=== PATIENT | female | born 1985 | race Caucasian/White ===

== ENCOUNTER 2016-06-21 14:42 | Emergency (ER) | payer MEDICAID ==
[2014-12-11 10:27] VITALS: BMI 36.0
[~2016-06-21 14:42] MED LIST: ABILIFY2 MG; CLIMARA 0.0.1 MG/PAT TRANSDERM; DEMEROL50 MG PO; GLUCOPHAGE500 MG PO; HYDROCHLOROTH12.5 M1 PO; HYDROCODON-ACE1 EAC7 PO; IBUPROFEN600 MG PO; KLONOPIN1 MG PO; LAMICTAL25 MG PO; LEVOXYL25 MCG PO; NEURONTIN600 MG PO; NORCO 10/325 TA1 TA1; OXYBUTYNIN CHLOR5 MG PO; SINGULAIR10 MG PO; SPIRIVA18 MCG INH; SYMBICORT 16010.2 GM INH; TOPAMAX50 MG PO; VENTOLIN HFA18 GM INH; ZANAFLEX4 MG; ZYPREXA20 MG PO
== END 2016-06-21 18:35 | disposition home or self-care (01) ==
LOC: D.ER 14:42
DX: S00.93XA Contusion of unspecified part of head, initial encounter (principal); W19.XXXA Unspecified fall, initial encounter; Y93.89 Activity, other specified; Y92.019 Unspecified place in single-family (private) house as the place of occurrence of the external cause; S43.402A Unspecified sprain of left shoulder joint, initial encounter; S16.1XXA Strain of muscle, fascia and tendon at neck level, initial encounter; F31.9 Bipolar disorder, unspecified; J44.9 Chronic obstructive pulmonary disease, unspecified; E11.9 Type 2 diabetes mellitus without complications; F20.9 Schizophrenia, unspecified

== ENCOUNTER 2016-07-07 11:23 | Emergency (ER) | payer MEDICAID ==
[2014-12-11 10:27] VITALS: BMI 36.0
[2016-07-07 13:04] LABS: APPEARANCE HAZY (CLEAR); BILIRUBIN NEGATIVE (NEGATIVE); COLOR YELLOW (YELLOW); GLUCOSE NEGATIVE (NEGATIVE); KETONE NEGATIVE (NEGATIVE); LEUKOCYTE ESTERASE NEGATIVE (NEGATIVE); NITRITE NEGATIVE (NEGATIVE); PROTEIN NEGATIVE (NEGATIVE); UROBILINOGEN NORMAL (NORMAL)
== END 2016-07-07 14:04 | disposition home or self-care (01) ==
LOC: D.ER 11:23
PROVIDERS: Emergency Medicine
DX: N39.0 Urinary tract infection, site not specified (principal); F20.9 Schizophrenia, unspecified; F31.9 Bipolar disorder, unspecified

== ENCOUNTER 2016-07-09 14:52 | Emergency (ER) | payer MEDICAID ==
[2014-12-11 10:27] VITALS: BMI 36.0
[2016-07-09 17:06] LABS: APPEARANCE HAZY (CLEAR); COLOR STRAW (YELLOW)
[2016-07-09 17:07] LABS: BILIRUBIN NEGATIVE (NEGATIVE); GLUCOSE NEGATIVE (NEGATIVE); KETONE NEGATIVE (NEGATIVE); LEUKOCYTE ESTERASE NEGATIVE (NEGATIVE); NITRITE NEGATIVE (NEGATIVE); PROTEIN NEGATIVE (NEGATIVE); UROBILINOGEN NORMAL (NORMAL)
[2016-07-09 18:11] LABS: BASOPHILS 0.2 % (0.0-2.0); EOSINOPHILS 2.3 % (0-7); HEMATOCRIT 45.7 % (36.0-48.0); HEMOGLOBIN 15.3 g/dL (12-16); MCH 30.8 pg (26.0-34.0); MCHC 33.5 g/dL (31.0-37.0); MEAN PLATELET VOLUME 10.3 fL (7.4-10.4); MONOCYTES 8.1 % (2-11); NEUTROPHILS 58.4 % (40-80); PLATELET COUNT 311 10x3/uL (130-400); RBC 4.97 10x6/uL (4.00-5.40); RDW 13.2 % (11.5-14.5); WBC 12.1 10x3/uL (4.8-10.8)
[2016-07-09 18:42] LABS: ALKALINE PHOSPHATASE 94 U/L (46-116); ALT (SGPT) 39 U/L (10-68); BILIRUBIN - TOTAL 0.24 mg/dL (0.2-1.3); CALC OSMOLALITY 271 mosm/kg (275-300); CALCIUM 10.2 mg/dL (8.5-10.1); CARBON DIOXIDE 23.9 mmol/L (21.0-32.0); CHLORIDE - SERUM 100 mmol/L (98-107); CREATININE - SERUM 0.8 mg/dL (0.6-1.3); GLUCOSE 89 mg/dL (74-106); POTASSIUM - SERUM 3.8 mmol/L (3.5-5.1); PROTEIN - SERUM 8.1 g/dL (6.4-8.2); SODIUM 136 mmol/L (136-145); UREA NITROGEN 15 mg/dL (7-18); eGFR NON AFRICAN AMERICAN 87 mL/min (90-120)
== END 2016-07-09 20:01 | disposition home or self-care (01) ==
LOC: D.ER 14:52
PROVIDERS: Emergency Medicine; Nurse Practitioner Family
DX: M54.5 Low back pain (principal); R10.9 Unspecified abdominal pain; F17.200 Nicotine dependence, unspecified, uncomplicated

== ENCOUNTER → 2016-07-15 15:21 | Outpatient (CLI) | payer MEDICAID ==
[2014-12-11 10:27] VITALS: BMI 36.0
== END | disposition home or self-care (01) ==
LOC: D.MRI 08:00
DX: R93.5 Abnormal findings on diagnostic imaging of other abdominal regions, including retroperitoneum (principal)

== ENCOUNTER 2016-12-12 12:04 | Emergency (ER) | payer MEDICAID ==
[2014-12-11 10:27] VITALS: BMI 36.0
[2016-12-12 14:23] LABS: CALC OSMOLALITY 277 mosm/kg (275-300); CALCIUM 9.5 mg/dL (8.5-10.1); CARBON DIOXIDE 28.4 mmol/L (21.0-32.0); CHLORIDE - SERUM 103 mmol/L (98-107); CREATININE - SERUM 0.7 mg/dL (0.6-1.3); GLUCOSE 126 mg/dL (74-106); POTASSIUM - SERUM 3.9 mmol/L (3.5-5.1); SODIUM 138 mmol/L (136-145); UREA NITROGEN 12 mg/dL (7-18); eGFR NON AFRICAN AMERICAN > 90 mL/min (90-120)
== END 2016-12-12 14:45 | disposition home or self-care (01) ==
LOC: D.ER 12:04
PROVIDERS: Family Medicine
DX: M79.605 Pain in left leg (principal); M79.604 Pain in right leg

== ENCOUNTER 2016-12-19 17:38 | Emergency (ER) | payer MEDICAID ==
[2014-12-11 10:27] VITALS: BMI 36.0
== END 2016-12-19 20:42 | disposition home or self-care (01) ==
LOC: D.ER 17:38
DX: M54.5 Low back pain (principal); M62.830 Muscle spasm of back; Z72.0 Tobacco use

== ENCOUNTER 2016-12-31 14:58 | Emergency (ER) | payer MEDICAID ==
[2014-12-11 10:27] VITALS: BMI 36.0
== END 2016-12-31 18:30 | disposition home or self-care (01) ==
LOC: D.ER 14:58
DX: M62.838 Other muscle spasm (principal); M79.1 Myalgia; F17.200 Nicotine dependence, unspecified, uncomplicated; J44.9 Chronic obstructive pulmonary disease, unspecified

== ENCOUNTER 2017-01-30 14:23 | Emergency (ER) | payer MEDICAID ==
[2014-12-11 10:27] VITALS: BMI 36.0
== END 2017-01-30 16:03 | disposition home or self-care (01) ==
LOC: D.ER 14:23
DX: I80.8 Phlebitis and thrombophlebitis of other sites (principal); F15.10 Other stimulant abuse, uncomplicated; J44.9 Chronic obstructive pulmonary disease, unspecified

== ENCOUNTER 2017-02-02 15:27 | Emergency (ER) | payer MEDICAID ==
[2014-12-11 10:27] VITALS: BMI 36.0
== END 2017-02-02 18:30 | disposition left against medical advice (07) ==
LOC: D.ER 15:27
DX: Z76.0 Encounter for issue of repeat prescription (principal)

== ENCOUNTER 2017-04-07 11:31 | Emergency (ER) | payer MEDICAID ==
[2014-12-11 10:27] VITALS: BMI 36.0
[2017-04-07 12:33] LABS: BASOPHILS 0.2 % (0-2); EOSINOPHILS 1.1 % (0-7); HEMATOCRIT 45.8 % (36.0-48.0); HEMOGLOBIN 15.5 g/dL (12-16); IMMATURE GRANULOCYTES 0.4 % (0-5); LYMPHOCYTES 25.8 % (15-50); MCH 30.6 pg (26.0-34.0); MCHC 33.8 g/dL (31.0-37.0); MCV 90.5 fL (80.0-100.0); MEAN PLATELET VOLUME 9.7 fL (7.4-10.4); NEUTROPHILS 66.5 % (40-80); PLATELET COUNT 309 10x3/uL (130-400); RBC 5.06 10x6/uL (4.00-5.40); RDW 13.2 % (11.5-14.5); WBC 13.2 10x3/uL (4.8-10.8)
[2017-04-07 12:36] LABS: APPEARANCE HAZY (CLEAR); BILIRUBIN NEGATIVE (NEGATIVE); COLOR YELLOW (YELLOW); GLUCOSE NEGATIVE (NEGATIVE); KETONE NEGATIVE (NEGATIVE); NITRITE NEGATIVE (NEGATIVE); PROTEIN NEGATIVE (NEGATIVE); SPECIFIC GRAVITY 1.015 (1.005-1.020); UROBILINOGEN NORMAL (NORMAL)
[2017-04-07 12:39] LABS: HCG URINE NEGATIVE (NEGATIVE)
[2017-04-07 12:55] LABS: ALBUMIN 4.1 g/dL (3.4-5.0); ALKALINE PHOSPHATASE 109 U/L (46-116); ALT (SGPT) 43 U/L (10-68); BILIRUBIN - TOTAL 0.32 mg/dL (0.2-1.3); CALC OSMOLALITY 281 mosm/kg (275-300); CALCIUM 9.6 mg/dL (8.5-10.1); CARBON DIOXIDE 27.1 mmol/L (21.0-32.0); CHLORIDE - SERUM 104 mmol/L (98-107); CREATININE - SERUM 0.7 mg/dL (0.6-1.3); GLUCOSE 95 mg/dL (74-106); LIPASE 124 U/L (73-393); POTASSIUM - SERUM 4.5 mmol/L (3.5-5.1); PROTEIN - SERUM 8.6 g/dL (6.4-8.2); SODIUM 141 mmol/L (136-145); UREA NITROGEN 14 mg/dL (7-18); eGFR NON AFRICAN AMERICAN > 90 mL/min (90-120)
== END 2017-04-07 15:54 | disposition home or self-care (01) ==
LOC: D.ER 11:31
PROVIDERS: Emergency Medicine
DX: R10.9 Unspecified abdominal pain (principal); R11.10 Vomiting, unspecified

== ENCOUNTER 2017-05-06 16:09 | Emergency (ER) | payer MEDICAID ==
[2014-12-11 10:27] VITALS: BMI 36.0
== END 2017-05-06 18:11 | disposition home or self-care (01) ==
LOC: D.ER 16:09
DX: R51 Headache (principal); J44.9 Chronic obstructive pulmonary disease, unspecified

== ENCOUNTER 2017-05-08 16:01 | Observation (INO) | payer MEDICAID ==
[~2017-05-08] VITALS: Ht 149.9 cm; Wt 82.6 kg
[2017-05-08 16:43] LABS: APPEARANCE CLEAR (CLEAR); BILIRUBIN NEGATIVE (NEGATIVE); COLOR STRAW (YELLOW); GLUCOSE NEGATIVE (NEGATIVE); KETONE NEGATIVE (NEGATIVE); NITRITE NEGATIVE (NEGATIVE); PROTEIN NEGATIVE (NEGATIVE); UROBILINOGEN NORMAL (NORMAL)
[2017-05-08 16:45] LABS: BACTERIA FEW /hpf (NONE SEEN); EPITHELIAL CELLS 0-5 /hpf (0-5); WHITE CELLS - URINE OCC /hpf (0-5)
[2017-05-08 16:46] LABS: UDS - AMPHET NEGATIVE QUAL (NEGATIVE); UDS - BARB POSITIVE QUAL (NEGATIVE); UDS - BENZO NEGATIVE QUAL (NEGATIVE); UDS - COCAINE NEGATIVE QUAL (NEGATIVE); UDS - OPIATE NEGATIVE QUAL (NEGATIVE); UDS - PCP NEGATIVE QUAL (NEGATIVE); UDS - THC POSITIVE QUAL (NEGATIVE)
[2017-05-08 16:52] LABS: BASOPHILS 0.3 % (0-2); EOSINOPHILS 1.2 % (0-7); HEMATOCRIT 39.8 % (36.0-48.0); HEMOGLOBIN 12.6 g/dL (12-16); IMMATURE GRANULOCYTES 0.2 % (0-5); LYMPHOCYTES 34.8 % (15-50); MCH 30.4 pg (26.0-34.0); MCHC 31.7 g/dL (31.0-37.0); MCV 96.1 fL (80.0-100.0); MEAN PLATELET VOLUME 10.2 fL (7.4-10.4); MONOCYTES 7.5 % (2-11); PLATELET COUNT 256 10x3/uL (130-400); RBC 4.14 10x6/uL (4.00-5.40); RDW 13.1 % (11.5-14.5); WBC 10.1 10x3/uL (4.8-10.8)
[2017-05-08 17:03] LABS: ACETAMINOPHEN 4.5 ug/mL (10.0-30.0); ALBUMIN 3.5 g/dL (3.4-5.0); ALKALINE PHOSPHATASE 94 U/L (46-116); ALT (SGPT) 34 U/L (10-68); BILIRUBIN - TOTAL 0.23 mg/dL (0.2-1.3); CALC OSMOLALITY 280 mosm/kg (275-300); CALCIUM 8.6 mg/dL (8.5-10.1); CARBON DIOXIDE 24.4 mmol/L (21.0-32.0); CHLORIDE - SERUM 107 mmol/L (98-107); CREATININE - SERUM 0.9 mg/dL (0.6-1.3); GLUCOSE 98 mg/dL (74-106); POTASSIUM - SERUM 3.7 mmol/L (3.5-5.1); PROTEIN - SERUM 7.1 g/dL (6.4-8.2); SODIUM 141 mmol/L (136-145); UREA NITROGEN 12 mg/dL (7-18); eGFR NON AFRICAN AMERICAN 76 mL/min (90-120)
[2017-05-08 17:08] LABS: HCG SERUM NEGATIVE (NEGATIVE)
--- NOTE | 2017-05-08 22:30 | NUR ---
ARRIVED TO UNIT VIA STRETCHER WITH ER STAFF. PT TRANSFERED TO BED AND WAS RECIEVED WITH BM AND URINE ALL OVER HER AND HER BED. PT STATED THAT THE ER STAFF WOULD NOT LET HER GO TO THE RR. PT IS SLIGHTLY LETHARGIC, SPEECH SLURRED, BUT ORIENTED X4. CONTINUES TO YELL OUT CURSE WORDS WHILE TALKING ABOUT STAFF AND HER FAMILY MEMBERS. STATES "IM TIRED OF HURTING, I WANT IT ALL TO BE OVER", "WHEN I GET OUT OF HERE THEY ARE ALL GOING TO PAY", "I JUST WANT TO ". PT ON OBSERVATION FOR SUICIDE ATTEMPT. PERSONAL ITEMS ARRIVED IN A ITEMS BAG, PT ALSO HAS ON A WHITE GOLD RING AND NOSE RING. PLACED PT STICKERS ON PERSONAL ITEMS BAG AND SEALED WITH PT STICKERS, THIS WAS SHOWN TO THE PATIENT AND SHE WAS TOLD HER THINGS WOULD BE HELD AT OUR NURSES STATION FROM DESK. ADMISSIONS ASSESSMENT COMPLETED ATT. PLEASE SEE FLOW SHEETS FOR FULL DETAILS. PT PRESENTS WITH MULTIPLE SCABS ON LEFT FACE WITH REDENNED AREAS AND BRUISING. BRUISING ALSO NOTED DOWN ARMS BILATERALLY. HANDS AND FEET DURTY, GAVE WASH CLOTH AND SHE WIPES SOME OFF. PROVIDED BEDSIDE CAMODE AND PT USING THIS WITH LITTLE ASSISTANCE, DIARRHEA NOTED. NO PROBLEMS RELIEVING HERSELF. RR EVEN AND UNLABORED WITH WHEEZES IN UPPER LOBES AND DIMINISHED IN LOWER LOBES. S1S2 HEARD AND PPP, CAP REFIL <3 SECONDS. PUPILS 5MM AND BRISK. BS ACTIVE X4. MOVES ALL EXTREMEMTIES ON OWN. C/O PAIN "ALL OVER" INFORMED HER THAT SHE WOULD NOT BE ABLE TO GET ANY PAIN MEDS SHE WAS BEING MONITORED FOR HER LOC AND THIS CANNOT BE MONITORED WITH PAIN MEDS ON BOARD. PT C/O BEING IGNORED BY OTHER HOSPITAL STAFF AND IS COLD AND HURTING. OFFERED WARM BLANKETS AND THESE WERE ACCEPTED.
[2017-05-08] MEDS ORDERED: ESTRACE2 MG PO (22:31)
[2017-05-08 22:38] VITALS: BP 122/68; BMI 36.8
[2017-05-08 23:00] VITALS: BP 107/79
--- NOTE | 2017-05-08 23:30 | NUR ---
CHECKED IN ON PATIENT AND SHE WAS ON CAMMODE, C/O BEING IGNORED AND STARTED YELLING ABOUT TEARING OFF HER LINES AND LEAVING, CHARGE NURSE IN ROOM TO SPEAK WITH PT.
[2017-05-09] VITALS (24 sets, daily range): BP systolic 99–136; BP diastolic 46–94
--- NOTE | 2017-05-09 01:00 | NUR ---
SLEEPING, NO S&S ACUTE DISTRESS NOTED. BED LOW AND LOCKED, CALL LIGHT IN REACH. WILL CPOC.
--- NOTE | 2017-05-09 02:58 | NUR ---
REASSESSMENT COMPLETE, PLEASE SEE FLOW SHEETS FOR DETAILS. DENIES ANY NEEDS ATT. WAS WOKEN UP FROM SPEECH. VSS, BED LOW AND LOCKED, CALL LIGHT IN REACH. NO CHANGES FROM PREVIOUS ASSESSMENT. WILL CPOC.
[2017-05-09 04:45] LABS: BASOPHILS 0.1 % (0-2); EOSINOPHILS 1.3 % (0-7); HEMATOCRIT 37.8 % (36.0-48.0); HEMOGLOBIN 12.3 g/dL (12-16); IMMATURE GRANULOCYTES 0.4 % (0-5); LYMPHOCYTES 40.3 % (15-50); MCH 30.6 pg (26.0-34.0); MCHC 32.5 g/dL (31.0-37.0); MEAN PLATELET VOLUME 11.7 fL (7.4-10.4); MONOCYTES 6.8 % (2-11); NEUTROPHILS 51.1 % (40-80); RBC 4.02 10x6/uL (4.00-5.40); RDW 13.1 % (11.5-14.5); WBC 9.6 10x3/uL (4.8-10.8)
[2017-05-09 04:46] LABS: PLATELET COUNT 141 10x3/uL (130-400)
--- NOTE | 2017-05-09 05:00 | NUR ---
RESTING, VSS, WILL CPOC.
[2017-05-09 05:07] LABS: CALC OSMOLALITY 281 mosm/kg (275-300); CALCIUM 8.4 mg/dL (8.5-10.1); CARBON DIOXIDE 26.3 mmol/L (21.0-32.0); CHLORIDE - SERUM 110 mmol/L (98-107); CREATININE - SERUM 0.7 mg/dL (0.6-1.3); GLUCOSE 96 mg/dL (74-106); POTASSIUM - SERUM 4.1 mmol/L (3.5-5.1); SODIUM 142 mmol/L (136-145); UREA NITROGEN 9 mg/dL (7-18); eGFR NON AFRICAN AMERICAN > 90 mL/min (90-120)
--- NOTE | 2017-05-09 11:08 | NUR ---
CONTINENT BOWEL MOVEMENT VIA BEDSIDE TOILET. LIQUID BROWN. NO ACUTE DISTRESS NOTED. LYING IN BED AT THIS TIME. WILL CONTINUE PLAN OF CARE.
--- NOTE | 2017-05-09 13:27 | NUR ---
LYING IN BED RESTING AT THIS TIME. NO ACUTE DISTRESS NOTED. RESPIRATIONS STEADY AND UNLABORED. AWAKENS EASILY WHEN SPOKEN TO. WILL CONTINUE PLAN OF CARE.
--- NOTE | 2017-05-09 16:28 | NUR ---
UP IN BED AWAKE AT THIS TIME. ALSO NOTED AT THIS TIME CONTINENT BOWEL MOVEMENT, LIQUID BROWN, VIA BEDSIDE TOILET ALONG WITH CONTINENT VOID. NO ACUTE DISTRESS NOTED. WILL CONTINUE PLAN OF CARE.
--- NOTE | 2017-05-09 18:03 | NUR ---
UP IN BED AWAKE AT THIS TIME. DENIES ANY NEEDS. NO ACUTE DISTRESS NOTED. WILL CONTINUE PLAN OF CARE.
--- NOTE | 2017-05-09 19:30 | NUR ---
REPORT RECEIVED. SHIFT ASSESSMENT COMPLETED PER FLOW SHEET. PT LAYING IN BED, AWAKE AND ALERT. ORIENTED X4. SPEECH CLEAR. S1S2 PRESENT. TELEMETRY MONITORING HR 89. RADIAL AND PEDAL PULSES PALP. BREATHING EQUAL, NON-LABORED. CLEAR BREATH SOUNDS ALL LOBES. BS ACTIVE X4. REDNESS, ABRASIONS, BRUISES, SCABS NOTED TO LEFT SIDE OF FACE, PT STATES IT WAS DUE TO A RECENT FALL. LT FOREARM PIV, SALINE LOCKED. CALL LIGHT WITHIN REACH. BED IN LOWEST POSITION. SEE FLOW SHEET FOR COMPLETE ASSESSMENT. VSS. WILL CONTINUE TO MONITOR.
--- NOTE | 2017-05-09 21:00 | NUR ---
PT LAYING IN BED RESTING, WATER PROVIDED. CALL LIGHT WITHIN REACH.
--- NOTE | 2017-05-09 23:05 | NUR ---
REASSESSMENT COMPLETED, SEE FLOW SHEET FOR DETAILS. NO ACUTE CHANGES NOTED. VSS. DENIES NEEDS. CALL LIGHT WITHIN REACH. BED IN LOWEST POSITION. WILL CONTINUE TO MONITOR.
[2017-05-10] VITALS (16 sets, daily range): BP systolic 110–139; BP diastolic 51–99; Ht 149.9 cm; Wt 82.6 kg
--- NOTE | 2017-05-10 01:00 | NUR ---
PT LAYING IN BED RESTING, EYES CLOSED. VSS. WILL CONTINUE TO MONITOR.
--- NOTE | 2017-05-10 03:38 | NUR ---
REASSESSMENT COMPLETED PER FLOW SHEET, NO ACUTE CHANGES NOTED. PT ALERT AND ORIENTED. WATER WITH ICE PROVIDED PER REQUEST. DENIES FURTHER NEEDS. NO DISTRESS NOTED AT THIS TIME. WILL CONTINUE TO MONITOR.
[2017-05-10 04:36] LABS: BASOPHILS 0.2 % (0-2); EOSINOPHILS 2.6 % (0-7); HEMATOCRIT 38.8 % (36.0-48.0); HEMOGLOBIN 12.6 g/dL (12-16); IMMATURE GRANULOCYTES 0.2 % (0-5); LYMPHOCYTES 46.4 % (15-50); MCH 30.3 pg (26.0-34.0); MCHC 32.5 g/dL (31.0-37.0); MCV 93.3 fL (80.0-100.0); MEAN PLATELET VOLUME 10.1 fL (7.4-10.4); MONOCYTES 6.9 % (2-11); NEUTROPHILS 43.7 % (40-80); PLATELET COUNT 235 10x3/uL (130-400); RBC 4.16 10x6/uL (4.00-5.40); RDW 12.9 % (11.5-14.5); WBC 8.8 10x3/uL (4.8-10.8)
[2017-05-10 05:02] LABS: ALBUMIN 3.1 g/dL (3.4-5.0); ALKALINE PHOSPHATASE 101 U/L (46-116); ALT (SGPT) 27 U/L (10-68); CALC OSMOLALITY 280 mosm/kg (275-300); CALCIUM 8.4 mg/dL (8.5-10.1); CARBON DIOXIDE 23.7 mmol/L (21.0-32.0); CHLORIDE - SERUM 106 mmol/L (98-107); CREATININE - SERUM 0.7 mg/dL (0.6-1.3); GLUCOSE 102 mg/dL (74-106); POTASSIUM - SERUM 3.6 mmol/L (3.5-5.1); PROTEIN - SERUM 6.5 g/dL (6.4-8.2); SODIUM 141 mmol/L (136-145); eGFR NON AFRICAN AMERICAN > 90 mL/min (90-120)
--- NOTE | 2017-05-10 05:07 | NUR ---
LAYING IN BED RESTING, EYES CLOSED. DENIES NEEDS. ZAIRA LIGHT WITHIN REACH. BED IN LOWEST POSITION. WILL CONTINUE TO MONITOR.
[2017-05-10 05:08] LABS: UREA NITROGEN 13 mg/dL (7-18)
--- NOTE | 2017-05-10 05:59 | NUR ---
MED ADMINISTERED PER EMAR, SEE FOR DETAILS. WATER PROVIDED. DENIES FURTHER NEEDS. WILL CONTINUE TO MONITOR. CALL LIGHT WITHIN REACH. BED IN LOWEST POSITION.
--- NOTE | 2017-05-10 08:16 | NUR ---
pt had woman calling hospitals looking for her, saying she was her mother and had the patient's child. Pt told about phone call. Says her mother's name is Monica and that she does have her daughter. It is okay to give her information.
--- NOTE | 2017-05-10 08:27 | NUR ---
spoke with patient mother. updated her to patient situation. let her know we were working on getting inpatient care for her.
--- NOTE | 2017-05-10 09:07 | NUR ---
MORNING MEDICATIONS PROVIDED. PT HAS EATEN BREAKFAST. ASKS FOR MORE COFFEE. SHE PROVIDED ME WITH A LIST OF PROVIDERS SHE HAS SEEN IN THE PAST REQUESTED BY DR THRASHER. LIST CONSISTED OF ISA REYES RHONDA THANNILL, [place].
--- NOTE | 2017-05-10 10:17 | NUR ---
SPOKE TO DR JOHNSON ABOUT RESTARTING PATIENT LEVOTHYROXIN AND ESTROGEN. AGREES TO RESTART
--- NOTE | 2017-05-10 10:24 | NUR ---
* Is the patient Alert and Oriented? Yes 0 * How many steps to enter\exit or inside your home? 5 0 * PCP Karolina Dougherty @ [facility] 0 * Pharmacy [facility] on [address] 0 * Preadmission Environment Home with Family 0 * ADLs Independent 0 * List name and contact numbers for known caregivers / representatives who currently or will assist patient after discharge: Mother - Monica Matthews [phone] 0 * Additional services required to return to the preadmission environment? Yes 0 * Has this patient been hospitalized within the prior 30 days at any hospital? No Patient Name: MASOOD LOZADA Admission Status: ER Accout number: [id number] Admission Date: 05-08-2017 : 1985 Admission Diagnosis: Attending: MELANIE GILES Current LOS: 2 Anticipated DC Date: 05-10-2017 Planned Disposition: Psych facility Primary Insurance: [facility] PRIVATE OPTIONS JOANNA Discharge Planning Comments: CM met with patient to assess dc plans/needs. Patient states she lives with her boyfriend, her best friend and her boyfriend. She states she has a 5 year old autistic son who lives with her . Nursing reports patient has a daughter that lives with her mother. She reports she is independent with all ADL's. Discussed inpatient psych options. Patient prefers to go home. Explained recommendation of inpatient psych placement. She is tearful & requests to discuss options with physician. CM called [facility] and requested Dr. Ha come see patient today. Explained I would be working on placement in the mean time. CM will follow. Financial Recruiter: Dolores Avelar
--- NOTE | 2017-05-10 10:35 | NUR ---
LEVOTHYROXIN GIVEN, AWAITING ESTRADIOL FROM PHARMACY
--- NOTE | 2017-05-10 11:58 | NUR ---
PT C/O NAUSEA AND HEADACHE. NOTHING ON ORDER FOR NAUSEA.
--- NOTE | 2017-05-10 12:12 | NUR ---
SPOKE WITH DR JOHNSON. ORDER RECEIVED FOR ZOFRAN 4MG Q4H PRN PO.
--- NOTE | 2017-05-10 13:51 | CN ---
PATIENT NAME:MASOOD LOZADA MEDICAL RECORD: [id number] : 81 LOCATION:SARAHD.2306 ADMIT DATE: 05/08/17 ACCOUNT: [id number] CONSULTING PHYSICIAN: LASHELL THRASHER MD REFERRING PHYSICIAN: MELANIE MEDEIROS MD DATE OF CONSULTATION: 05/09/2017 PSYCHIATRIC CONSULTATION IDENTIFYING DATA: The patient is 32 years old and she is admitted to the hospital on a voluntary basis. CHIEF COMPLAINT: Overdose. HISTORY OF PRESENT ILLNESS: The patient took a deliberate overdose of gabapentin and Fioricet. She did this with the intention of killing herself and admitted it when she came here. She now says she does not want to , but she does not say it in a very convincing way. She has very limited insight about her situation. She reports lots of psychosocial stressors, mood lability, and feels overwhelmed. She is willing to go to an inpatient treatment. MENTAL STATUS EXAMINATION: The patient is awake; alert; and oriented to person, place, time, and situation. Her mood is anxious. Her affect is labile. Thought processes are disorganized. Her memory, concentration, and abstraction abilities are moderately impaired. She denies any active intent to harm herself or others as well as any overt psychotic symptoms. ASSESSMENT: 1. Bipolar disorder by history. 2. Status post overdose. PLAN: The patient should be confined. The patient should be transferred to an inpatient psychiatric facility when medically stable. She is willing to go on a voluntary basis. Her long-term prognosis is guarded and will depend upon the treatment that she receives in the psychiatric facility and her compliance with outpatient followup care. TRANSINT:[id number] Voice Confirmation ID: [id number] DOCUMENT ID: [id number] LASHELL THRASHER MD at 1351 CC: [id number] DICTATION DATE: 05/09/17 1250 SALT MAKER: 05/09/17 1326 ADM IN [facility] [address] [place] [address]
--- NOTE | 2017-05-10 13:58 | NUR ---
REPORT CALLED TO CHIKI PULIDO RN AT [facility]. [phone]. PT TO BE ACCEPTED BY DR CURT BORGES TO ROOM 400 BED 1.
--- NOTE | 2017-05-10 15:07 | NUR ---
Rec'd call from [facility] with [facility]. Patient has been accepted and can transfer to Room 400 Bed 1. Nursing to call report to [phone]. Dr. Fabian Levine accepting patient. Patient agreeable with POC.
--- NOTE | 2017-05-10 15:37 | NUR ---
1530 CASE MANANGEMENT IN TO INFORM PT OF TRANSFER TO [facility].. AMBULANCE CALLED FOR TRANSPORT PIV DCd .. PT C/O HEADACHE .. NO MEDS GIVEN AT THIS TIME FOR HEADACHE NONE DUE.. ICE PACK REINFORCED..
[2017-05-11 18:09] LABS: AFB SPECIMEN PROCESSING Concentration (())
[2017-06-29 09:13] LABS: ACID FAST CULTURE Negative (())
== END 2017-05-10 16:46 | disposition short-term general hospital (02) ==
LOC: D.ER 16:01 → D.ICU 21:25 → OBSVTIME 21:25 → D.ICU 21:25
PROVIDERS: Family Medicine; ADMIT Family Medicine Adult Medicine
DX: T42.6X2A Poisoning by other antiepileptic and sedative-hypnotic drugs, intentional self-harm, initial encounter (principal); T39.1X2A Poisoning by 4-Aminophenol derivatives, intentional self-harm, initial encounter; F31.9 Bipolar disorder, unspecified; E66.01 Morbid (severe) obesity due to excess calories; E11.9 Type 2 diabetes mellitus without complications; I10 Essential (primary) hypertension; G40.909 Epilepsy, unspecified, not intractable, without status epilepticus; J44.9 Chronic obstructive pulmonary disease, unspecified; Z72.0 Tobacco use

== ENCOUNTER 2017-06-28 18:13 | Emergency (ER) | payer MEDICAID ==
[2017-05-10 09:09] VITALS: BMI 36.7
[~2017-06-28 18:13] MED LIST changes: +ESTRACE2 MG PO
[2017-06-28 18:39] LABS: APPEARANCE CLEAR (CLEAR); BILIRUBIN NEGATIVE (NEGATIVE); COLOR YELLOW (YELLOW); GLUCOSE NEGATIVE (NEGATIVE); KETONE NEGATIVE (NEGATIVE); NITRITE NEGATIVE (NEGATIVE); PROTEIN NEGATIVE (NEGATIVE); UROBILINOGEN NORMAL (NORMAL)
[2017-06-28 18:45] LABS: BASOPHILS 0.1 % (0-2); EOSINOPHILS 0.8 % (0-7); HEMATOCRIT 40.4 % (36.0-48.0); HEMOGLOBIN 13.4 g/dL (12-16); IMMATURE GRANULOCYTES 0.8 % (0-5); LYMPHOCYTES 26.4 % (15-50); MCH 30.9 pg (26.0-34.0); MCHC 33.2 g/dL (31.0-37.0); MCV 93.1 fL (80.0-100.0); MEAN PLATELET VOLUME 9.1 fL (7.4-10.4); MONOCYTES 7.3 % (2-11); NEUTROPHILS 64.6 % (40-80); PLATELET COUNT 245 10x3/uL (130-400); RBC 4.34 10x6/uL (4.00-5.40); RDW 12.6 % (11.5-14.5); WBC 13.4 10x3/uL (4.8-10.8)
[2017-06-28 19:00] LABS: ALBUMIN 3.5 g/dL (3.4-5.0); ALKALINE PHOSPHATASE 124 U/L (46-116); ALT (SGPT) 35 U/L (10-68); BILIRUBIN - TOTAL 0.14 mg/dL (0.2-1.3); CALC OSMOLALITY 275 mosm/kg (275-300); CALCIUM 9.2 mg/dL (8.5-10.1); CHLORIDE - SERUM 101 mmol/L (98-107); CREATININE - SERUM 0.7 mg/dL (0.6-1.3); GLUCOSE 113 mg/dL (74-106); POTASSIUM - SERUM 3.8 mmol/L (3.5-5.1); PROTEIN - SERUM 7.6 g/dL (6.4-8.2); SODIUM 138 mmol/L (136-145); UREA NITROGEN 9 mg/dL (7-18); eGFR NON AFRICAN AMERICAN > 90 mL/min (90-120)
[2017-06-28 19:04] LABS: CREATINE KINASE 114 UL (21-215)
[2017-06-28 19:06] LABS: TROPONIN-I < 0.017 ng/mL (0.000-0.060)
[2017-06-28 19:28] LABS: CKMB 1.3 U/L (0.0-3.6)
== END 2017-06-28 21:13 | disposition home or self-care (01) ==
LOC: D.ER 18:13
PROVIDERS: Family Medicine
DX: J44.1 Chronic obstructive pulmonary disease with (acute) exacerbation (principal); J20.9 Acute bronchitis, unspecified; F17.200 Nicotine dependence, unspecified, uncomplicated

== ENCOUNTER 2017-06-30 19:24 | Emergency (ER) | payer MEDICAID ==
[2017-05-10 09:09] VITALS: BMI 36.7
[2017-06-30 19:58] LABS: BASOPHILS 0.1 % (0-2); HEMATOCRIT 39.2 % (36.0-48.0); HEMOGLOBIN 12.9 g/dL (12-16); LYMPHOCYTES 22.4 % (15-50); MCH 30.8 pg (26.0-34.0); MCHC 32.9 g/dL (31.0-37.0); MCV 93.6 fL (80.0-100.0); MEAN PLATELET VOLUME 9.3 fL (7.4-10.4); NEUTROPHILS 62.5 % (40-80); PLATELET COUNT 212 10x3/uL (130-400); RBC 4.19 10x6/uL (4.00-5.40); RDW 12.9 % (11.5-14.5); WBC 7.7 10x3/uL (4.8-10.8)
[2017-06-30 20:20] LABS: INR 0.95 (0.85-1.17); PROTIME 12.3 SECONDS (11.6-15.0)
[2017-06-30 20:22] LABS: D-DIMER-QUANTITATIVE 0.3 ug/mLFEU (0.20-0.54)
[2017-06-30 20:24] LABS: ALBUMIN 3.4 g/dL (3.4-5.0); ALKALINE PHOSPHATASE 131 U/L (46-116); ALT (SGPT) 47 U/L (10-68); BILIRUBIN - TOTAL 0.12 mg/dL (0.2-1.3); CALC OSMOLALITY 276 mosm/kg (275-300); CALCIUM 8.6 mg/dL (8.5-10.1); CARBON DIOXIDE 25.1 mmol/L (21.0-32.0); CHLORIDE - SERUM 102 mmol/L (98-107); CREATININE - SERUM 0.8 mg/dL (0.6-1.3); POTASSIUM - SERUM 3.8 mmol/L (3.5-5.1); PROTEIN - SERUM 7.3 g/dL (6.4-8.2); SODIUM 136 mmol/L (136-145); UREA NITROGEN 14 mg/dL (7-18); eGFR NON AFRICAN AMERICAN 87 mL/min (90-120)
[2017-06-30 20:25] LABS: GLUCOSE 172 mg/dL (74-106)
[2017-06-30 20:32] LABS: CREATINE KINASE 193 UL (21-215); MAGNESIUM - SERUM 1.9 mg/dL (1.8-2.4); PRO BNP 29 pg/mL (0-125)
[2017-06-30 20:34] LABS: TROPONIN-I < 0.017 ng/mL (0.000-0.060)
[2017-06-30 20:45] LABS: APPEARANCE CLEAR (CLEAR); BILIRUBIN NEGATIVE (NEGATIVE); COLOR YELLOW (YELLOW); GLUCOSE 100 mg/dL (NEGATIVE); KETONE NEGATIVE (NEGATIVE); NITRITE NEGATIVE (NEGATIVE); PROTEIN NEGATIVE (NEGATIVE); UROBILINOGEN NORMAL (NORMAL)
== END 2017-06-30 21:43 | disposition home or self-care (01) ==
LOC: D.ER 19:24
PROVIDERS: Family Medicine
DX: J20.9 Acute bronchitis, unspecified (principal); J45.901 Unspecified asthma with (acute) exacerbation; I10 Essential (primary) hypertension; E11.9 Type 2 diabetes mellitus without complications

== ENCOUNTER 2017-07-15 07:38 | Emergency (ER) | payer MEDICAID ==
[2017-05-10 09:09] VITALS: BMI 36.7
[2017-07-15 08:05] LABS: BASOPHILS 0.2 % (0-2); EOSINOPHILS 1.2 % (0-7); HEMATOCRIT 39.7 % (36.0-48.0); HEMOGLOBIN 13.3 g/dL (12-16); IMMATURE GRANULOCYTES 1.4 % (0-5); LYMPHOCYTES 37.3 % (15-50); MCH 30.2 pg (26.0-34.0); MCHC 33.5 g/dL (31.0-37.0); MCV 90.2 fL (80.0-100.0); MEAN PLATELET VOLUME 9.2 fL (7.4-10.4); MONOCYTES 8.7 % (2-11); NEUTROPHILS 51.2 % (40-80); RDW 12.4 % (11.5-14.5); WBC 11.1 10x3/uL (4.8-10.8)
[2017-07-15 08:06] LABS: PLATELET COUNT 264 10x3/uL (130-400)
[2017-07-15 08:21] LABS: ALBUMIN 3.7 g/dL (3.4-5.0); ALKALINE PHOSPHATASE 109 U/L (46-116); ALT (SGPT) 69 U/L (10-68); CALC OSMOLALITY 276 mosm/kg (275-300); CALCIUM 8.9 mg/dL (8.5-10.1); CARBON DIOXIDE 26.1 mmol/L (21.0-32.0); CHLORIDE - SERUM 99 mmol/L (98-107); CREATININE - SERUM 0.7 mg/dL (0.6-1.3); GLUCOSE 150 mg/dL (74-106); POTASSIUM - SERUM 3.7 mmol/L (3.5-5.1); PROTEIN - SERUM 7.3 g/dL (6.4-8.2); SODIUM 136 mmol/L (136-145); UREA NITROGEN 17 mg/dL (7-18); eGFR NON AFRICAN AMERICAN > 90 mL/min (90-120)
[2017-07-15 08:29] LABS: APPEARANCE CLEAR (CLEAR); BILIRUBIN NEGATIVE (NEGATIVE); COLOR YELLOW (YELLOW); GLUCOSE NEGATIVE (NEGATIVE); KETONE NEGATIVE (NEGATIVE); NITRITE NEGATIVE (NEGATIVE); PROTEIN NEGATIVE (NEGATIVE); UROBILINOGEN NORMAL (NORMAL)
[2017-07-15 08:30] LABS: HCG URINE NEGATIVE (NEGATIVE)
[2017-07-15 08:32] LABS: CKMB 0.9 U/L (0.0-3.6); CREATINE KINASE 91 UL (21-215); TROPONIN-I < 0.017 ng/mL (0.000-0.060)
[2017-07-15 08:33] LABS: PRO BNP 9 pg/mL (0-125)
== END 2017-07-15 10:16 | disposition home or self-care (01) ==
LOC: D.ER 07:38
PROVIDERS: Family Medicine
DX: J06.9 Acute upper respiratory infection, unspecified (principal); J20.9 Acute bronchitis, unspecified; J44.9 Chronic obstructive pulmonary disease, unspecified; E11.9 Type 2 diabetes mellitus without complications; I10 Essential (primary) hypertension

== ENCOUNTER → 2017-09-09 12:29 | Outpatient (CLI) | payer MEDICAID ==
[2017-05-10 09:09] VITALS: BMI 36.7
== END | disposition home or self-care (01) ==
LOC: D.US 12:29
DX: K81.1 Chronic cholecystitis (principal)

== ENCOUNTER 2018-11-27 20:44 | Observation (INO) | payer MEDICAID ==
[~2018-11-27] VITALS: Ht 149.9 cm; Wt 74.8 kg
[~2018-11-27 20:44] MED LIST changes: -LEVOXYL25 MCG PO; +LEVOXYL75 MCG
--- NOTE | 2018-11-27 20:44 | NUR ---
PT REPORT FROM EMS CREW, PT PLACED IN [facility] ROOM 1 FOR EVALUATION OF OVERDOSE. PT WAS ASISSTED [facility], AND GIVEN BLUE PAPER SCRUBS TO CHANGE INTO. CALL FOR SCREENER WAS PLACED AND PATIENT WAS PLACED ON 1:1 OBS. DUE TO SELF HARM COMMENTS.
[2018-11-27] MEDS ORDERED: BUSPAR10 MG (20:51)
[2018-11-27] MEDS ORDERED: GLUCOPHAGE1000 MG (20:51)
[2018-11-27 21:00] VITALS: BP 148/88
[2018-11-27 21:10] VITALS: BP 147/84
[2018-11-27 21:17] LABS: BASOPHILS 0.2 % (0-2); EOSINOPHILS 2.6 % (0-7); HEMATOCRIT 38.9 % (36.0-48.0); HEMOGLOBIN 13.2 g/dL (12-16); IMMATURE GRANULOCYTES 0.9 % (0-5); LYMPHOCYTES 24.6 % (15-50); MCHC 33.9 g/dL (31.0-37.0); MCV 91.3 fL (80.0-100.0); MEAN PLATELET VOLUME 9.6 fL (7.4-10.4); MONOCYTES 5.4 % (2-11); NEUTROPHILS 66.3 % (40-80); PLATELET COUNT 280 10x3/uL (130-400); RBC 4.26 10x6/uL (4.00-5.40); RDW 12.9 % (11.5-14.5)
--- NOTE | 2018-11-27 21:19 | NUR ---
[facility] CALLED AND THEY ADVISED TO MONITOR PATIENT AND GIVE SUPPORTIVE TREATMENTS
[2018-11-27 21:20] LABS: APPEARANCE CLEAR (CLEAR); BILIRUBIN NEGATIVE (NEGATIVE); COLOR STRAW (YELLOW); GLUCOSE 250 mg/dL (NEGATIVE); KETONE NEGATIVE (NEGATIVE); NITRITE NEGATIVE (NEGATIVE); PROTEIN NEGATIVE (NEGATIVE); SPECIFIC GRAVITY 1.005 (1.005-1.020); UROBILINOGEN NORMAL (NORMAL)
[2018-11-27 21:22] LABS: HCG URINE NEGATIVE (NEGATIVE)
--- NOTE | 2018-11-27 21:26 | NUR ---
REVIEWED ASSESSMENT RESULTS WITH DR. THRASHER AND ATTENDING. PT IS A HIGH RISK FOR SUICIDE AND A 1:1 SITTER IS ORDER WITH SUICIDE PRECAUTIONS PER DR. THRASHER. PT ADMITTED TO TAKING OVER 80 PILLS TOTAL TONIGHT. PT IS VERY LETHARGIC BUT SHE IS ABLE TO ANSWER QUESTIONS APPROPRIATELY. PT IS BEING MOVED TO A SECURE ROOM AND SHE HAS ALREADY BEEN PLACED IN PAPERSCRUBS. ALL BELONGINGS AT NURSES STATION. SAFETY PLAN COMPLETED AND REVIEWED WITH PT. RESOURCES GIVEN AND DISCUSSED WITH PT. PT VERBALIZED UNDERSTANDING.
[2018-11-27 21:27] LABS: UDS - AMPHET NEGATIVE QUAL (NEGATIVE); UDS - BARB NEGATIVE QUAL (NEGATIVE); UDS - BENZO NEGATIVE QUAL (NEGATIVE); UDS - COCAINE NEGATIVE QUAL (NEGATIVE); UDS - OPIATE NEGATIVE QUAL (NEGATIVE); UDS - PCP NEGATIVE QUAL (NEGATIVE); UDS - THC POSITIVE QUAL (NEGATIVE)
[2018-11-27 21:30] VITALS: BP 145/85
[2018-11-27 21:37] LABS: ALBUMIN 3.9 g/dL (3.4-5.0); ALKALINE PHOSPHATASE 112 U/L (46-116); ALT (SGPT) 83 U/L (10-68); BILIRUBIN - TOTAL 0.16 mg/dL (0.2-1.3); CALC OSMOLALITY 288 mosm/kg (275-300); CALCIUM 9.3 mg/dL (8.5-10.1); CARBON DIOXIDE 25.4 mmol/L (21.0-32.0); CHLORIDE - SERUM 102 mmol/L (98-107); CREATININE - SERUM 0.9 mg/dL (0.6-1.3); POTASSIUM - SERUM 4.2 mmol/L (3.5-5.1); SODIUM 139 mmol/L (136-145); UREA NITROGEN 13 mg/dL (7-18); eGFR NON AFRICAN AMERICAN 75 mL/min (90-120)
[2018-11-27 21:39] LABS: GLUCOSE 291 mg/dL (74-106)
[2018-11-27 21:46] LABS: THYROID STIMULATING HORMONE 0.38 uIU/mL (0.36-3.74)
[2018-11-27 22:00] VITALS: BP 137/91
--- NOTE | 2018-11-27 22:55 | NUR ---
RECEIVED PATIENT TO ROOM 2210 VIA WC FROM ED ACCOMPANIED BY [facility] RN. TRANSFERED TO ICU BED. MONITORS CONNECTED TO PATIENT WITH ALARMS SET. VSS. ADMISSION ASSESSMENT COMPLETED PER FLOW SHEET WITH NO ACUTE DISTRESS OBSERVED. PATIENT VERBALLY AGREES TO CONTRACT FOR SAFETY AT THIS TIME.
[2018-11-27 23:00] VITALS: BP 134/75
[2018-11-27 23:12] VITALS: BP 134/91; BMI 33.4
[2018-11-28] VITALS (10 sets, daily range): BP systolic 110–131; BP diastolic 71–102; Ht 149.9 cm; Wt 74.8 kg
--- NOTE | 2018-11-28 01:00 | NUR ---
RESTING WITH EYES CLOSED. ROUSES EASILY. VSS
[2018-11-28] MEDS ORDERED: LOSARTAN/HCTZ (02:27)
--- NOTE | 2018-11-28 03:00 | NUR ---
REASSESMENT COMPLETED PER FLOW SHEET WITH NO CHANGES OR ACUTE DISTRESS OBSERVED AT PRESENT. VSS. ROUSES EASILY. ALERT AND ORIENTED X4. SPEECH CLEAR AND APPROPRIATE.
--- NOTE | 2018-11-28 05:00 | NUR ---
RESTING WITH EYES CLOSED. EASILY ROUSED AND ALERT. VSS
--- NOTE | 2018-11-28 07:00 | NUR ---
REPORT RECIEVED. SHIFT ASSESMENT COMPLETED. PATIENT SLEEPING. EVERYTHING IS OUT OF ROOM. CALL LIGHT WITHIN REACH. BED LOW AND LOCKED IN POSITION. SITTER AT BED SIDE. WILL CONTINUE TO MONITOR.
--- NOTE | 2018-11-28 07:31 | NUR ---
PATIENT RESTING QUIETLY IN BED, EYES CLOSED, AROUSES TO VERBAL STIMULI, CONT TO EXPRESS DESIRE TO END HER LIFE, 1:[address], PATIENT'S CASE REVIEWED WITH DR. THRASHER.
--- NOTE | 2018-11-28 09:00 | NUR ---
PATIENT STATED 8/10 PAIN. TYLENOL GIVEN. WILL REASSES. PATIENT DROWSY. PATIENT IS ALERT AND ORIENTED. ALL THINGS ARE OUT OF ROOM. SITTER IS AT BEDSIDE. VITAL SIGNS STABLE. CALL LIGHT WITHIN REACH. BED LOW AND LOCKED. WILL CONTINUE TO MONITOR.
[2018-11-28 09:31] LABS: CALC OSMOLALITY 288 mosm/kg (275-300); CALCIUM 9.3 mg/dL (8.5-10.1); CARBON DIOXIDE 25.7 mmol/L (21.0-32.0); CHLORIDE - SERUM 102 mmol/L (98-107); CREATININE - SERUM 0.9 mg/dL (0.6-1.3); GLUCOSE 271 mg/dL (74-106); POTASSIUM - SERUM 4.4 mmol/L (3.5-5.1); SODIUM 140 mmol/L (136-145); UREA NITROGEN 12 mg/dL (7-18); eGFR NON AFRICAN AMERICAN 75 mL/min (90-120)
[2018-11-28 10:02] LABS: HEMATOCRIT 39.8 % (36.0-48.0); MCH 30.8 pg (26.0-34.0); MCHC 32.7 g/dL (31.0-37.0); MEAN PLATELET VOLUME 10.7 fL (7.4-10.4); PLATELET COUNT 252 10x3/uL (130-400); RBC 4.22 10x6/uL (4.00-5.40); RDW 13.1 % (11.5-14.5)
[2018-11-28 10:03] LABS: MCV 94.3 fL (80.0-100.0)
[2018-11-28 11:50] LABS: EOSINOPHILS 9 % (0-7); LYMPHOCYTES 30 % (15-50); MONOCYTES 5 % (2-11); NEUTROPHILS 56 % (40-80); PLATELET ESTIMATE NORMAL
--- NOTE | 2018-11-28 12:17 | MORECARE ---
CASE MANAGEMENT DISCHARGE SUMMARY PATIENT: MASOOD HERNANDEZ N UNIT: [id number] ADM DATE: 11/27/18 AGE: 33 : [birth year] SEX: F ROOM/BED: D.2310 AUTHOR: CRISS HARDY PHYSICIAN: REFERRING PHYSICIAN: CAIO CHERY DO DATE OF SERVICE: 11/28/18 Discharge Plan Patient Name: MASOOD HERNANDEZ Facility: [facility]:[place] : 1985 Planned Disposition: Anticipated Discharge Date: Discharge Date: Expected LOS: Initial Reviewer: [email or web address] Initial Review Date: 11/27/2018 Generated: 11/28/18 1:17 pm DCP- Discharge Planning Updated by [email or web address]: Kristine Zaragoza on 11/28/18 10:[address] CM placed a call to [employer] to verifiy if patient has insurance or not no answer at this time, left message to call CM back. CM will continue to follow and assist as needed with discharge planning / needs. Patient Name: MASOOD HERNANDEZ Page [id number] at 1217 All edits/amendments must be made on the electronic document DICTATION DATE: 11/28/181216 GENETIC ENGINEER: JOE 11/28/181216 RPT#: [id number] DC DATE: STATUS: ADM IN [facility] [address] [place] [address] END OF REPORT
--- NOTE | 2018-11-28 13:21 | NUR ---
PATIENT RESTING. VITAL SIGNS STABLE. WILL CONTINUE TO MONITOR. CALL LIGHT WITHIN REACH. BED LOW AND LOCKED. EVERYTHING OUT OF ROOM. SITTER AT BEDSIDE.
--- NOTE | 2018-11-28 13:33 | NUR ---
PATIENT EATING. ALERT AND ORIENTED. BED LOW AND LOCKED. CALL LIGHT WITHIN REACH. SITTER AT BED SIDE. VSS. WILL CONTINUE TO MONITOR. SAFETY PRECAUTIONS IN PLACE.
--- NOTE | 2018-11-28 15:21 | NUR ---
patient drowsy. easily arouses to speech. patient states a little relief of headache. call light within reach. sitter at bed side. patient refused CHG bath. will continue to monitor
--- NOTE | 2018-11-28 15:49 | MORECARE ---
CASE MANAGEMENT DISCHARGE SUMMARY PATIENT: MASOOD HERNANDEZ N UNIT: [id number] ADM DATE: 11/27/18 AGE: 33 : [birth year] SEX: F ROOM/BED: D.[facility] [place][note 2]0 AUTHOR: CRISS HARDY PHYSICIAN: REFERRING PHYSICIAN: CAIO CHERY DO DATE OF SERVICE: 11/28/18 Discharge Plan Patient Name: MASOOD HERNANDEZ Facility: [facility]:[place] : 1985 Planned Disposition: Anticipated Discharge Date: Discharge Date: Expected LOS: Initial Reviewer: [email or web address] Initial Review Date: 11/27/2018 Generated: 11/28/18 4:49 pm DCP- Discharge Planning Updated by [email or web address]: Kristine Zaragoza on 11/28/18 10:[address] CM placed a call to [employer] to verifiy if patient has insurance or not no answer at this time, left message to call CM back. CM will continue to follow and assist as needed with discharge planning / needs. External Providers External Provider: [facility] Next Contact Date: Service Request Date: Service Type: Resolution: Reviewer: Comments: Last DP export: 11/28/18 11:17 a Patient Name: MASOOD HERNANDEZ Page [phone] at 1544 All edits/amendments must be made on the electronic document DICTATION DATE: 11/28/181547 TEST TECHNICIAN: JOE 11/28/18 1548 RPT#: [id number] DC DATE: STATUS: ADM IN [facility] [address] [place] [address] END OF REPORT
--- NOTE | 2018-11-28 15:58 | MORECARE ---
CASE MANAGEMENT DISCHARGE SUMMARY PATIENT: MASOOD HERNANDEZ N UNIT: [id number] ADM DATE: 11/27/18 AGE: 33 : 81 SEX: F ROOM/BED: D.2310 AUTHOR: CRISS HARDY PHYSICIAN: REFERRING PHYSICIAN: CAIO CHERY DO DATE OF SERVICE: 11/28/18 Discharge Plan Patient Name: MASOOD HERNANDEZ Facility: [facility]:[place] : 1985 Planned Disposition: Psych facility Anticipated Discharge Date: Discharge Date: Expected LOS: Initial Reviewer: [email or web address] Initial Review Date: 11/27/2018 Generated: 11/28/18 4:58 pm DCP- Discharge Planning Updated by [email or web address]: Kristine Zaragoza on 11/28/18 10:[address] CM placed a call to [employer] to verifiy if patient has insurance or not no answer at this time, left message to call CM back. CM will continue to follow and assist as needed with discharge planning / needs. Last DP export: 11/28/18 2:49 p Patient Name: MASOOD HERNANDEZ Page [phone] at 1558 All edits/amendments must be made on the electronic document DICTATION DATE: 11/28/181556 BUTTER PRINTER: JOE 11/28/181556 RPT#: [id number] DC DATE: STATUS: ADM IN [facility] [address] [place] [address] END OF REPORT
--- NOTE | 2018-11-28 16:08 | MORECARE ---
CASE MANAGEMENT DISCHARGE SUMMARY PATIENT: MASOOD HERNANDEZ UNIT: [id number] ADM DATE: 11/27/18 AGE: 33 : [birth year] SEX: F ROOM/BED: D.2310 AUTHOR: CRISS HARDY PHYSICIAN: REFERRING PHYSICIAN: CAIO CHERY DO DATE OF SERVICE: 11/28/18 Discharge Plan Patient Name: MASOOD HERNANDEZ Facility: [facility]:[place] : 1985 Planned Disposition: Psych facility Anticipated Discharge Date: Discharge Date: Expected LOS: Initial Reviewer: [email or web address] Initial Review Date: 11/27/2018 Generated: 11/28/18 5:08 pm Comments DCP- Discharge Planning Updated by [email or web address]: Kristine Zaragoza on 11/28/18 2:[address] Patient Name: MASOOD HERNANDEZ Admission Status: ER Accout number: [id number] Admission Date: 11-27-2018 : 1985 Admission Diagnosis: Attending: CAIO CHERY Current LOS: 1 Anticipated DC Date: Planned Disposition: Psych facility Primary Insurance: MEDICAID [place] Discharge Planning Comments: CM was notified for Inpatient Psychiatric Placement. Patient does have Medicaid Insurance. CM contacted transfer center and faxed records other than psychiatric consult which is pending. CM awaiting placement. Swimming Instructor: Kristine Zaragoza DCP- Discharge Planning Updated by [email or web address]: Kristine Zaragoza on 11/28/18 10:[address] CM placed a call to [employer] to verifiy if patient has insurance or not no answer at this time, left message to call CM back. CM will continue to follow and assist as needed with discharge planning / needs. Last DP export: 11/28/18 2:58 p Patient Name: MASOOD HERNANDEZ Page [phone] at 1608 All edits/amendments must be made on the electronic document DICTATION DATE: 11/28/181607 ENVIRONMENTAL SOLUTIONS ENGINEER: JOE 11/28/18 160 RPT#: [id number] DC DATE: STATUS: ADM IN [place] [id number] [facility] [place] [address] END OF REPORT
--- NOTE | 2018-11-28 17:11 | NUR ---
PATIENT COMPLAINED OF HIGH BP. PATIENT STATED AT HOME SHE TOOK LOSARTAN AND HCTZ. BP WAS 144/110 UPON ENCTRANCE OF PATIENT ROOM. REASSESED ON DIFFERENT EXTREMITY AND PATIENT WAS FLEXING ARM WHEN BP WAS BEING TAKEN. LATER REASSESED ON SAME EXTREMITY WHILE DISTRACTING PATIENT AND WAS THEN 139/98. VSS. WILL CONTINUE TO MONITOR PATIENT.
--- NOTE | 2018-11-28 19:00 | NUR ---
REPORT RECEIVED. RECEIVED PATIENT UP IN BED. AWAKE AND ALERT. ORIENTED X 4. SPEECH CLEAR AND APPROPRIATE. TALKATIVE/LAUGHING. SITTER AT BEDSIDE. MONITORS CONNECTED TO PATIENT WITH ALARMS SET. VSS. SHIFT ASSESSMENT COMPLETED PER FLOW SHEET WITH NO ACUTE DISTRESS OBSERVED.
--- NOTE | 2018-11-28 19:18 | NUR ---
PATIENT RESTING IN BED, ALERT, ORIENTED, HYPER-VERBAL, DENIES SUICIDAL PLANS AT THIS TIME, STATED PLANS FOR THE FUTURE. HOWEVER, DUE TO PREVIOUS ASSESSMENTS, 1:[address] CASE DISCUSSED WITH DR THRASHER. PATIENT AWAITING TRANSFER TO INPATIENT PSYCH FACILITY.
--- NOTE | 2018-11-28 21:00 | NUR ---
AWAKE AND ALERT. VSS. NO ACUTE DISTRESS OBSERVED AT PRESENT.SITTER AT BEDSIDE
--- NOTE | 2018-11-28 23:00 | NUR ---
REASSESSMENT COMPLETED PER FLOW SHEET WITH NO CHANGES OR ACUTE DISTRESS OBSERVED. VSS.
--- NOTE | 2018-11-29 01:00 | NUR ---
VSS. NO ACUTE DISTRESS OBSERVED. SITTER AT BEDSIDE
[2018-11-29 03:00] VITALS: BP 132/87
--- NOTE | 2018-11-29 03:00 | NUR ---
RESTING WITH EYES CLOSED. EASILY ROUSED AND ALERT. VSS
--- NOTE | 2018-11-29 05:00 | NUR ---
RESTING WITH EYES CLOSED. VSS
[2018-11-29 07:00] VITALS: BP 132/87
--- NOTE | 2018-11-29 07:00 | NUR ---
PATIENT REPORT RECIEVED FROM GLENIS OBRIEN. PATIENT SLEEPING. INSULIN ADMINISTERED AT THIS TIME. SHIFT ASSESMENT COMPLETED. SUICIDE SAFETY PRECAUTIONS IN PLACE. SITTER AT BED SIDE. CALL LIGHT WITHIN REACH. PATIENT RATED PAIN OF 7/10 HEADACHE. TYLENOL GIVEN. WILL REASSES PAIN.
--- NOTE | 2018-11-29 09:00 | NUR ---
DR GUERRA AT BEDSIDE. UPDATE GIVEN.
--- NOTE | 2018-11-29 10:35 | MORECARE ---
CASE MANAGEMENT DISCHARGE SUMMARY PATIENT: MASOOD HERNANDEZ UNIT: [id number] ADM DATE: 11/27/18 AGE: 33 : 81 SEX: F ROOM/BED: D.2310 AUTHOR: CRISS HARDY PHYSICIAN: REFERRING PHYSICIAN: CAIO CHERY DO DATE OF SERVICE: 11/29/18 Discharge Plan Patient Name: MASOOD HERNANDEZ Facility: [facility]:[place] : 1985 Planned Disposition: Psych facility Anticipated Discharge Date: Discharge Date: Expected LOS: Initial Reviewer: [email or web address] Initial Review Date: 11/27/2018 Generated: 11/29/18 11:35 am Comments DCP- Discharge Planning Updated by [email or web address]: Kristine Zaragoza on 11/28/18 2:[address] Patient Name: MASOOD HERNANDEZ Admission Status: ER Accout number: [id number] Admission Date: 11-27-2018 : 1985 Admission Diagnosis: Attending: CAIO CHERY Current LOS: 1 Anticipated DC Date: Planned Disposition: Psych facility Primary Insurance: MEDICAID [place] Discharge Planning Comments: CM was notified for Inpatient Psychiatric Placement. Patient does have Medicaid Insurance. CM contacted transfer center and faxed records other than psychiatric consult which is pending. CM awaiting placement. Competitive Intelligence Manager: Kristine Zaragoza DCP- Discharge Planning Updated by [email or web address]: Kristine Zaragoza on 11/28/18 10:[address] CM placed a call to [employer] to verifiy if patient has insurance or not no answer at this time, left message to call CM back. CM will continue to follow and assist as needed with discharge planning / needs. External Providers External Provider: OTHER-OTHER Next Contact Date: Service Request Date: Service Type: Resolution: Reviewer: Comments: Last DP export: 11/28/18 3:08 p Patient Name: MASOOD HERNANDEZ Page [phone] at 1035 All edits/amendments must be made on the electronic document DICTATION DATE: 11/29/18 1034 PURCHASING AND CLAIMS SUPERVISOR: JOE 11/29/18 1034 RPT#: [id number] DC DATE: STATUS: ADM IN [facility] [address] [facility] [place] [address] END OF REPORT
--- NOTE | 2018-11-29 10:38 | NUR ---
PT CONTINUES TO HAVE A FLAT AFFECT. PT DENIES SI AT THIS TIME. COPING SKILLS REVIEWED WITH PT ON HOW TO DEAL WITH DEPRESSION SUCH USING JOURNALING OR TALKING TO HER SUPPORT PERSON.
[2018-11-29 11:06] VITALS: BP 124/82
--- NOTE | 2018-11-29 12:57 | NUR ---
REPORT GIVEN TO ANDREE.
--- NOTE | 2018-11-29 13:11 | NUR ---
PT REFUSED CHG BATH.
--- NOTE | 2018-11-29 13:17 | CN ---
PATIENT NAME:MASOOD HERNANDEZ MEDICAL RECORD: [id number] : 81 LOCATION:[facility].2310 ADMIT DATE: 11/27/18 ACCOUNT: [id number] CONSULTING PHYSICIAN: LASHELL THRASHER MD REFERRING PHYSICIAN: CAIO CHERY DO DATE OF CONSULTATION: 11/28/2018 IDENTIFYING DATA: The patient is 33 years old. She is admitted to the hospital secondary to an overdose CHIEF COMPLAINT: Depression. HISTORY OF PRESENT ILLNESS: The patient took a handful of gabapentin, BuSpar with the intention of killing herself. She said she did this with the full intent to kill herself. She endorses numerous neurovegetative depressive symptoms. She has a history of suicidal behaviors also and has been previously diagnosed with bipolar disorder and schizophrenia. She says she is still having thoughts of harming herself. ASSESSMENT: Bipolar disorder. PLAN: The patient is acutely dangerous. She is in need of inpatient psychiatric care and would like to go to the [facility] if that is possible. TRANSINT:[id number] Voice Confirmation ID: [id number] DOCUMENT ID: [id number] LASHELL THRASHER MD at 1317 CC: [id number] DICTATION DATE: 11/28/18 1551 PUBLISHING MANAGER: 11/28/18 1906 ADM IN [facility] [address] [place] [address]
--- NOTE | 2018-11-29 14:15 | NUR ---
PATIENT DISCHARGED VIA AMBULANCE
--- NOTE | 2018-11-30 09:17 | MORECARE ---
CASE MANAGEMENT DISCHARGE SUMMARY PATIENT: MASOOD HERNANDEZ UNIT: [id number] ADM DATE: 11/27/18 AGE: 33 : [birth year] SEX: F ROOM/BED: D.2310 AUTHOR: CRISS HARDY PHYSICIAN: REFERRING PHYSICIAN: CAIO CHERY DO DATE OF SERVICE: 11/30/18 Discharge Plan Patient Name: MASOOD HERNANDEZ Facility: [facility]:[place] : 1985 Planned Disposition: Psych facility Anticipated Discharge Date: Discharge Date: 11/29/2018 Expected LOS: Initial Reviewer: [email or web address] Initial Review Date: 11/27/2018 Generated: 11/30/18 10:17 am Comments DCP- Discharge Planning Updated by [email or web address]: Kristine Zaragoza on 11/28/18 2:[address] Patient Name: MASOOD HERNANDEZ Admission Status: ER Accout number: [id number] Admission Date: 11-27-2018 : 1985 Admission Diagnosis: Attending: CAIO CHERY Current LOS: 1 Anticipated DC Date: Planned Disposition: Psych facility Primary Insurance: MEDICAID [place] Discharge Planning Comments: CM was notified for Inpatient Psychiatric Placement. Patient does have Medicaid Insurance. CM contacted transfer center and faxed records other than psychiatric consult which is pending. CM awaiting placement. Parimutuel Cashier: Kristine Zaragoza DCP- Discharge Planning Updated by [email or web address]: Kristine Zaragoza on 11/28/18 10:[address] CM placed a call to [employer] to verifiy if patient has insurance or not no answer at this time, left message to call CM back. CM will continue to follow and assist as needed with discharge planning / needs. Last DP export: 11/29/18 9:35 a Patient Name: MASOOD HERNANDEZ Page [id number] at 0917 All edits/amendments must be made on the electronic document DICTATION DATE: 11/30/18916 WEBSPHERE ARCHITECT: JOE 11/30/18916 RPT#: [id number] DC DATE:11/29/18 STATUS: DIS IN [facility] [address] [place] [address] END OF REPORT
== END 2018-11-29 14:16 | disposition short-term general hospital (02) ==
LOC: D.ER 20:44 → OBSVTIME 21:59 → D.ICU 21:59
PROVIDERS: Family Medicine; Internal Medicine Nephrology; ADMIT Family Medicine; ATTEND Family Medicine
DX: T42.6X2A Poisoning by other antiepileptic and sedative-hypnotic drugs, intentional self-harm, initial encounter (principal); J44.9 Chronic obstructive pulmonary disease, unspecified; F31.9 Bipolar disorder, unspecified; F20.9 Schizophrenia, unspecified; I10 Essential (primary) hypertension; E03.9 Hypothyroidism, unspecified; E11.9 Type 2 diabetes mellitus without complications; E66.01 Morbid (severe) obesity due to excess calories; F17.203 Nicotine dependence unspecified, with withdrawal; G40.909 Epilepsy, unspecified, not intractable, without status epilepticus; F50.9 Eating disorder, unspecified; Z68.33 Body mass index [BMI] 33.0-33.9, adult; T43.592A Poisoning by other antipsychotics and neuroleptics, intentional self-harm, initial encounter

== ENCOUNTER 2019-02-23 21:08 | Emergency (ER) | payer MEDICAID ==
[~2019-02-23] VITALS: Ht 149.9 cm; Wt 79.2 kg
[~2019-02-23 21:08] MED LIST changes: +BUSPAR10 MG; +GLUCOPHAGE1000 MG; +LOSARTAN/HCTZ
[2019-02-23 21:15] VITALS: Ht 149.9 cm; Wt 79.2 kg
[2019-02-23] MEDS ORDERED: LANTUS SOL100 UNIT/1 SC (21:17)
[2019-02-23] MEDS ORDERED: HALDOL5 MG PO (21:18)
[2019-02-23] MEDS ORDERED: TRAZODONE HCL150 MG PO (21:20)
[2019-02-23] MEDS ORDERED: HYDROXYZINE HCL50 MG PO (21:20)
[2019-02-23 21:39] LABS: BASOPHILS 0.3 % (0-2); EOSINOPHILS 5.2 % (0-7); HEMATOCRIT 41.9 % (36.0-48.0); HEMOGLOBIN 14.3 g/dL (12-16); IMMATURE GRANULOCYTES 0.9 % (0-5); LYMPHOCYTES 43.7 % (15-50); MCHC 34.1 g/dL (31.0-37.0); MCV 87.8 fL (80.0-100.0); MEAN PLATELET VOLUME 9.2 fL (7.4-10.4); MONOCYTES 5.5 % (2-11); NEUTROPHILS 44.4 % (40-80); PLATELET COUNT 302 10x3/uL (130-400); RBC 4.77 10x6/uL (4.00-5.40); RDW 12.8 % (11.5-14.5); WBC 12.7 10x3/uL (4.8-10.8)
[2019-02-23 21:58] LABS: ALBUMIN 3.8 g/dL (3.4-5.0); ALKALINE PHOSPHATASE 109 U/L (46-116); ALT (SGPT) 49 U/L (10-68); BILIRUBIN - TOTAL 0.17 mg/dL (0.2-1.3); CALC OSMOLALITY 273 mosm/kg (275-300); CALCIUM 9.2 mg/dL (8.5-10.1); CARBON DIOXIDE 27.4 mmol/L (21.0-32.0); CHLORIDE - SERUM 99 mmol/L (98-107); CREATININE - SERUM 0.9 mg/dL (0.6-1.3); GLUCOSE 229 mg/dL (74-106); POTASSIUM - SERUM 4.3 mmol/L (3.5-5.1); PROTEIN - SERUM 7.8 g/dL (6.4-8.2); SODIUM 133 mmol/L (136-145); UREA NITROGEN 15 mg/dL (7-18); eGFR NON AFRICAN AMERICAN 75 mL/min (90-120)
[2019-02-23 22:01] LABS: AMYLASE - SERUM 63 U/L (25-115); LIPASE 276 U/L (73-393); TROPONIN-I < 0.017 ng/mL (0.000-0.060)
[2019-02-23 22:16] LABS: APPEARANCE CLEAR (CLEAR); BILIRUBIN NEGATIVE (NEGATIVE); COLOR YELLOW (YELLOW); GLUCOSE NEGATIVE (NEGATIVE); KETONE NEGATIVE (NEGATIVE); NITRITE NEGATIVE (NEGATIVE); PROTEIN TRACE mg/dL (NEGATIVE); SPECIFIC GRAVITY 1.015 (1.005-1.020); UROBILINOGEN NORMAL (NORMAL)
[2019-02-24 01:27] VITALS: BP 120/70
[2019-02-24] MEDS ORDERED: TRAZODONE HCL150 MG PO (01:31)
[2019-02-24] MEDS ORDERED: HYDROXYZINE HCL50 MG PO (01:31)
== END 2019-02-24 01:27 | disposition home or self-care (01) ==
LOC: D.ER 21:08
PROVIDERS: Family Medicine
DX: K21.9 Gastro-esophageal reflux disease without esophagitis (principal); R07.9 Chest pain, unspecified

== ENCOUNTER → 2019-05-03 15:02 | Outpatient (CLI) | payer MEDICAID ==
[2019-02-23 21:15] VITALS: BMI 35.2
[~2019-05-03 15:02] MED LIST changes: +HALDOL5 MG PO; +HYDROXYZINE HCL50 MG PO; +LANTUS SOL100 UNIT/1 SC; +TRAZODONE HCL150 MG PO
== END | disposition home or self-care (01) ==
LOC: D.RAD 13:45 → D.RT 16:00
PROVIDERS: ATTEND Internal Medicine Pulmonary Disease
DX: J44.9 Chronic obstructive pulmonary disease, unspecified (principal)

== ENCOUNTER 2019-05-26 19:00 | Outpatient (CLI) | payer MEDICAID ==
[2019-02-23 21:15] VITALS: BMI 35.2
== END 2019-05-26 23:59 | disposition home or self-care (01) ==
LOC: D.MAMMO 19:00
PROVIDERS: ATTEND Family Medicine
DX: Z12.31 Encounter for screening mammogram for malignant neoplasm of breast (principal); Z80.3 Family history of malignant neoplasm of breast

== ENCOUNTER 2019-07-05 09:21 | Emergency (ER) | payer MEDICAID ==
[~2019-07-05] VITALS: Ht 149.9 cm; Wt 67.3 kg
[2019-07-05 09:26] VITALS: Ht 149.9 cm; Wt 67.3 kg
[2019-07-05] MEDS ORDERED: NEURONTIN600 MG PO (09:31)
[2019-07-05] MEDS ORDERED: ULTRAM50 MG PO (09:55)
[2019-07-05 10:10] VITALS: BP 125/74
== END 2019-07-05 10:11 | disposition home or self-care (01) ==
LOC: D.ER 09:21
DX: M79.18 Myalgia, other site (principal); E11.9 Type 2 diabetes mellitus without complications; Z79.4 Long term (current) use of insulin; I10 Essential (primary) hypertension; E07.9 Disorder of thyroid, unspecified; K21.9 Gastro-esophageal reflux disease without esophagitis; Z72.0 Tobacco use

== ENCOUNTER 2019-09-04 12:11 | Emergency (ER) | payer MEDICAID ==
[~2019-09-04] VITALS: Ht 149.9 cm; Wt 68.2 kg
[~2019-09-04 12:11] MED LIST changes: +ULTRAM50 MG PO
[2019-09-04 12:14] VITALS: Ht 149.9 cm; Wt 68.2 kg
[2019-09-04] MEDS ORDERED: GEODON40 MG PO (12:15)
[2019-09-04] MEDS ORDERED: DEPAKOTE500 MG PO (12:15)
[2019-09-04] MEDS ORDERED: LYRICA75 MG PO (12:16)
[2019-09-04] MEDS ORDERED: MINIPRESS 5 MG C5 MG PO (12:16)
[2019-09-04] MEDS ORDERED: SINGULAIR10 MG PO (12:16)
[2019-09-04] MEDS ORDERED: MONODOX100 MG PO (12:18)
[2019-09-04 13:13] LABS: CALC OSMOLALITY 273 mosm/kg (275-300); CALCIUM 9.7 mg/dL (8.5-10.1); CARBON DIOXIDE 26.5 mmol/L (21.0-32.0); CHLORIDE - SERUM 101 mmol/L (98-107); CREATININE - SERUM 0.8 mg/dL (0.6-1.3); POTASSIUM - SERUM 3.8 mmol/L (3.5-5.1); SODIUM 137 mmol/L (136-145); UREA NITROGEN 12 mg/dL (7-18); eGFR NON AFRICAN AMERICAN 86 mL/min (90-120)
[2019-09-04 13:15] LABS: GLUCOSE 91 mg/dL (74-106)
[2019-09-04 13:15] LABS: BILIRUBIN NEGATIVE (NEGATIVE); GLUCOSE NEGATIVE (NEGATIVE); KETONE SMALL mg/dL (NEGATIVE); NITRITE NEGATIVE (NEGATIVE); SPECIFIC GRAVITY 1.015 (1.005-1.020); UROBILINOGEN NORMAL (NORMAL)
[2019-09-04 13:18] LABS: HEMATOCRIT 42.7 % (36.0-48.0); HEMOGLOBIN 14.3 g/dL (12-16); LYMPHOCYTES 34.9 % (15-50); MCH 29.9 pg (26.0-34.0); MCHC 33.5 g/dL (31.0-37.0); MCV 89.1 fL (80.0-100.0); MEAN PLATELET VOLUME 9.2 fL (7.4-10.4); NEUTROPHILS 61.4 % (40-80); PLATELET COUNT 283 10x3/uL (130-400); RBC 4.79 10x6/uL (4.00-5.40); RDW 12.5 % (11.5-14.5); WBC 9.7 10x3/uL (4.8-10.8)
[2019-09-04 13:23] LABS: ALBUMIN 3.8 g/dL (3.4-5.0); ALKALINE PHOSPHATASE 102 U/L (30-120); ALT (SGPT) 17 U/L (10-68); AMYLASE - SERUM 51 U/L (25-115); BILIRUBIN - TOTAL 0.36 mg/dL (0.2-1.3); LIPASE 85 U/L (73-393); TROPONIN-I < 0.017 ng/mL (0.000-0.060)
[2019-09-04] MEDS ORDERED: BENTYL 20 MG TA20 MG PO (14:03)
[2019-09-04] MEDS ORDERED: ZOFRAN ODT4 MG/UDTAB PO (14:03)
[2019-09-04 14:44] VITALS: BP 127/76
== END 2019-09-04 14:45 | disposition home or self-care (01) ==
LOC: D.ER 12:11
PROVIDERS: Family Medicine
DX: R10.9 Unspecified abdominal pain (principal); R11.0 Nausea; E11.9 Type 2 diabetes mellitus without complications; Z79.4 Long term (current) use of insulin; J44.9 Chronic obstructive pulmonary disease, unspecified; F17.210 Nicotine dependence, cigarettes, uncomplicated

== ENCOUNTER 2019-10-24 08:22 | Day surgery (SDC) | payer MEDICAID ==
[~2019-10-24] VITALS: Ht 149.9 cm; Wt 75.5 kg
--- NOTE | ~2019-10-24 | OP ---
PATIENT NAME: MASOOD HERNANDEZ MEDICAL RECORD: [id number] :81 LOCATION:[facility] ADMISSION DATE: SURGEON: BENJAMIN HITCHCOCK MD DATE OF OPERATION: 10/24/2019 PROCEDURE: Colonoscopy with ileoscopy, biopsy, polypectomy and ablation. INDICATIONS: Ms. James is a pleasant 34-year-old woman with a history of asthma, COPD, diabetes mellitus who has had symptoms of heartburn, nausea, vomiting, epigastric abdominal pain (episode of hematemesis) and changes in bowel habit. She has had alternating diarrhea, constipation and will sometimes have up to 6 watery bowel movements a day. She has had an unintentional weight loss of 29 pounds in 1 year. She presents for outpatient colonoscopy. PREMEDICATIONS: Total IV anesthesia, propofol 450 mg. INSTRUMENT: Olympus video colonoscope, pediatric. PROCEDURE AND FINDINGS: After receiving informed consent, Ms. James was placed in left lateral decubitus position, sedated as per anesthesia. After achieving adequate level of sedation, digital rectal exam was performed that showed no external hemorrhoidal tags, fissures or fistulas, normal sphincter tone, no palpable rectal masses. The colonoscope was introduced per rectally and advanced to the cecum without difficulty. The cecum, IC valve, and appendiceal orifice were identified. At the edge of the appendiceal orifice was a 0.5 cm sessile polyp removed with hot biopsy forcep technique. The terminal ileum mucosa was without erythema or ulcers. Biopsies were taken from the terminal ileum. There was minimal patchy erythema in the proximal ascending colon and ascending colon biopsies were obtained to rule out microscopic colitis. In the sigmoid colon were a few early diverticula. In the distal sigmoid colon was a 0.3 cm sessile polyp removed with hot biopsy forcep technique. In the rectum, were two diminutive polyps measuring 0.25 cm in size that were cauterized with the hot biopsy forceps technique for purposes of polyp ablation. Retroflexion in rectum showed mild internal hemorrhoids. A fair to good prep was present. Stool was collected from the colon. Withdrawal time was 15 minutes. Ms. James tolerated the procedure well, no immediate complications. ASSESSMENT: 1. Early sigmoid diverticula. 2. Appendiceal orifice polyp status post polypectomy. 3. Sigmoid polyp status post polypectomy. 4. Two small rectal polyp status post ablation. 5. Nonspecific colitis involving the ascending colon, status post biopsy. 6. Mild internal hemorrhoids. RECOMMENDATIONS: 1. Stool specimen to be sent for culture and sensitivity, white blood cell, CDT ova and parasite. 2. Avoid aspirin, nonsteroidal anti-inflammatory drugs and CHEEK-2 inhibitors 14 days post polypectomy. 3. Daily Metamucil. 4. Surveillance colonoscopy in 3 years. 5. We will schedule EGD. OPERATIVE REPORT [id number] MASOOD HERNANDEZ TRANSINT:[id number] Voice Confirmation ID: [id number] DOCUMENT ID: [id number] cc: RUBY Claire TERRI MD CC: CLEMENTINE FLORES MD [id number] DICTATION DATE: 10/24/19 1030 REPRODUCTIVE SURGEON: 10/24/19 1135 [facility] 10/24/19 [id number] [place] [address]
[~2019-10-24 08:22] MED LIST changes: +BENTYL 20 MG TA20 MG PO; +DEPAKOTE500 MG PO; +GEODON40 MG PO; +LYRICA75 MG PO; +MINIPRESS 5 MG C5 MG PO; +MONODOX100 MG PO; +ZOFRAN ODT4 MG/UDTAB PO
[2019-10-24 08:44] LABS: HEMATOCRIT 43.5 % (36.0-48.0); HEMOGLOBIN 14.3 g/dL (12-16); LYMPHOCYTES 35.5 % (15-50); MCH 30.9 pg (26.0-34.0); MCHC 32.9 g/dL (31.0-37.0); MEAN PLATELET VOLUME 8.9 fL (7.4-10.4); NEUTROPHILS 59.9 % (40-80); RBC 4.63 10x6/uL (4.00-5.40); RDW 12.8 % (11.5-14.5); WBC 10.6 10x3/uL (4.8-10.8)
[2019-10-24 08:46] LABS: PLATELET COUNT 346 10x3/uL (130-400)
[2019-10-24 08:53] LABS: CALC OSMOLALITY 274 mosm/kg (275-300); CALCIUM 9.3 mg/dL (8.5-10.1); CARBON DIOXIDE 30.1 mmol/L (21.0-32.0); CHLORIDE - SERUM 100 mmol/L (98-107); CREATININE - SERUM 0.7 mg/dL (0.6-1.3); GLUCOSE 87 mg/dL (74-106); POTASSIUM - SERUM 4.2 mmol/L (3.5-5.1); SODIUM 139 mmol/L (136-145); UREA NITROGEN 7 mg/dL (7-18); eGFR NON AFRICAN AMERICAN > 90 mL/min (90-120)
[2019-10-24] MEDS ORDERED: PROVENTIL/2.5 MG/3 M INH (08:53)
[2019-10-24] MEDS ORDERED: DULERA 200 MCG8.8 GM INH (08:53)
[2019-10-24 09:02] VITALS: BP 110/75; Ht 149.9 cm; Wt 75.5 kg
--- NOTE | 2019-10-24 10:00 | NUR ---
DR. THRASHER NOTIFIED AND REVIEWED PT'S BEHAVIOR AND ASSESSMENT RESULTS. PT IS A LOW RISK PER DR. THRASHER. DR. THRASHER STATED TO GIVE RESOURCES TO PT AT TIME OF DISCHARGE. NO FURTHER ORDERS AT THIS TIME. RESOURCES REVIEWED WITH PT AND SHE VERBALIZED UNDERSTANDING.
--- NOTE | 2019-10-24 10:39 | NUR ---
1025-RECD TO ROOM FROM GI LAB. ALERT. 1035-DR HITCHCOCK HERE TO REPORT FINDINGS.
--- NOTE | 2019-10-24 11:08 | NUR ---
1113-DISCHARGE HOME VIA WHEELCHAIR TO [facility] TRANSPORTATION.
[2019-10-26 18:08] LABS: OVA + PARASITE EXAM Final report (())
== END 2019-10-24 11:13 | disposition home or self-care (01) ==
LOC: D.OPS 08:22
PROVIDERS: Anesthesiology; ATTEND Internal Medicine Gastroenterology
DX: R12 Heartburn (principal); R11.2 Nausea with vomiting, unspecified; R19.7 Diarrhea, unspecified; K59.00 Constipation, unspecified; R63.4 Abnormal weight loss; J44.9 Chronic obstructive pulmonary disease, unspecified; E11.9 Type 2 diabetes mellitus without complications; K63.5 Polyp of colon; Z79.84 Long term (current) use of oral hypoglycemic drugs; Z72.0 Tobacco use

== ENCOUNTER 2019-12-23 20:39 | Emergency (ER) | payer MEDICAID ==
[~2019-12-23] VITALS: Ht 149.9 cm; Wt 81.8 kg
[~2019-12-23 20:39] MED LIST changes: +DULERA 200 MCG8.8 GM INH; +PROVENTIL/2.5 MG/3 M INH
[2019-12-23 20:45] VITALS: Ht 149.9 cm; Wt 81.8 kg
[2019-12-23] MEDS ORDERED: IPRAT-ALBUT 0.5-3 ML UPD (20:48)
[2019-12-23 21:09] LABS: BASOPHILS 0.3 % (0-2); EOSINOPHILS 1.5 % (0-7); HEMATOCRIT 36.9 % (36.0-48.0); HEMOGLOBIN 11.8 g/dL (12-16); IMMATURE GRANULOCYTES 0.6 % (0-5); LYMPHOCYTES 32.3 % (15-50); MCV 96.9 fL (80.0-100.0); MEAN PLATELET VOLUME 8.7 fL (7.4-10.4); MONOCYTES 10.1 % (2-11); NEUTROPHILS 55.2 % (40-80); RBC 3.81 10x6/uL (4.00-5.40); RDW 13.5 % (11.5-14.5); WBC 11.7 10x3/uL (4.8-10.8)
[2019-12-23 21:12] LABS: BILIRUBIN NEGATIVE (NEGATIVE); GLUCOSE 100 mg/dL (NEGATIVE); KETONE NEGATIVE (NEGATIVE); NITRITE NEGATIVE (NEGATIVE); SPECIFIC GRAVITY 1.005 (1.005-1.020); UROBILINOGEN NORMAL (NORMAL)
[2019-12-23 21:12] LABS: PLATELET COUNT 255 10x3/uL (130-400)
[2019-12-23 21:53] LABS: ANION GAP 12.6 mmol/L (8-16); CALCIUM 8.4 mg/dL (8.5-10.1); CARBON DIOXIDE 27.1 mmol/L (21.0-32.0); POTASSIUM - SERUM 3.7 mmol/L (3.5-5.1)
[2019-12-23 21:57] LABS: ALBUMIN 3.4 g/dL (3.4-5.0); BILIRUBIN - TOTAL 0.18 mg/dL (0.2-1.3); PROTEIN - SERUM 6.8 g/dL (6.4-8.2)
[2019-12-24 00:18] LABS: UDS - AMPHET NEGATIVE QUAL (NEGATIVE); UDS - BARB NEGATIVE QUAL (NEGATIVE); UDS - BENZO NEGATIVE QUAL (NEGATIVE); UDS - COCAINE NEGATIVE QUAL (NEGATIVE); UDS - OPIATE POSITIVE QUAL (NEGATIVE); UDS - PCP NEGATIVE QUAL (NEGATIVE); UDS - THC POSITIVE QUAL (NEGATIVE)
[2019-12-24 01:37] VITALS: BP 135/77
== END 2019-12-24 01:37 | disposition home or self-care (01) ==
LOC: D.ER 20:39
PROVIDERS: Emergency Medicine
DX: F11.10 Opioid abuse, uncomplicated (principal); E11.40 Type 2 diabetes mellitus with diabetic neuropathy, unspecified; J44.9 Chronic obstructive pulmonary disease, unspecified; Z72.0 Tobacco use; Z79.4 Long term (current) use of insulin; R05 Cough; R30.0 Dysuria; R10.9 Unspecified abdominal pain; R19.7 Diarrhea, unspecified